=== PATIENT | male | born 1960 | race Caucasian/White ===

== ENCOUNTER → 2023-05-12 06:43 | Outpatient (REF) | payer BC, SELFPAY | LOC: PAVMRI 06:43 | PROVIDERS: ATTENDING PHYSICIAN Physician Assistant | DX: G89.29 Other chronic pain (principal); M51.36 Other intervertebral disc degeneration, lumbar region; M54.41 Lumbago with sciatica, right side; M54.42 Lumbago with sciatica, left side | CPT/HCPCS: 72148 ==

== ENCOUNTER 2023-07-23 06:19 | Inpatient (IN) | payer BC, SELFPAY ==
--- NOTE | 2023-06-19 10:54 | CM ---
Patient is scheduled for lumbar spine surgery on 07/23/23. Spoke with patient prior to surgery via telephone. Patient had a R THR at in 2021. Reintroduced role of the Orthopedic Navigator. Patient reports that he lives with his in a multi
story home. There are 12 steps to enter (bilateral rails) and a flight of steps to the second floor. He currently functions independently. He has a cane, firm cushion, grabber and rolling walker. He had VN services through and [facility]. PCP is
Eric Weinberg.
Discussed orthopedic program, post surgical plans and tentative plan for patient to return home when directed by surgeon. Patient is in agreement with tentative plan and will have support from his when he goes home.
Plan: Orthopedic Navigator will remain available to assist with the care of patient and will reassess discharge needs after surgery.
[2023-07-03 08:16] VITALS: BMI 30.7
[2023-07-03 09:05] LABS: Hematocrit 39.6 % (39.0-52.0); Hemoglobin 13.3 g/dL (13.0-18.0); Mean Corp Hgb Conc. 33.6 g/dL (33.0-37.0); Mean Corpuscular Volume 89.2 fL (80.0-94.0); Mean Platelet Volume 8.6 fL (7.4-10.4); Platelet Count 303 10^3/uL (130-400); Red Blood Cell Count 4.44 10^6/uL (4.70-6.10); Red Cell Dist. Width 13.2 % (11.5-14.5); White Blood Cell Count 7.9 10^3/uL (4.8-10.8)
[2023-07-03 09:51] LABS: ALT (SGPT) 48 U/L (0-50); AST (SGOT) 38 U/L (17-59); Albumin 4.3 g/dl (3.5-5.0); Alkaline Phosphatase 73 U/L (38-126); Blood Urea Nitrogen 33 mg/dl (9-20); Calcium 9.8 mg/dl (8.4-10.2); Carbon Dioxide 29 mmol/L (22-30); Chloride 102 mmol/L (98-107); Estimated Creatinine Clearance 85 ml/min; Glucose 97 mg/dl (70-99); Potassium 5.6 mmol/L (3.5-5.1); Sodium 134 mmol/L (135-145); Total Bilirubin 0.5 mg/dl (0.2-1.3); Total Protein 6.7 g/dl (6.3-8.2); eGFR > 60.00
[2023-07-03 15:06] VITALS: BMI 30.7
--- NOTE | 2023-07-21 15:04 | PTCARENOTE ---
Patients 07/02 potassium 5.6- reviewed by Dr. Starr- no additional interventions required
[2023-07-23] VITALS (13 sets, daily range): BP systolic 97–147; BP diastolic 68–86
[2023-07-23] MEDS: TYLENOL 1000 MG PO ×3 (10:06→23:35)
[2023-07-23] MEDS: NORMOSOL-R 1000 IV ×2 (10:06→17:11)
[2023-07-23] MEDS: CELEBREX 200 MG PO (10:06)
[2023-07-23] MEDS: SKELAXIN 800 MG PO ×2 (10:06→18:49)
[2023-07-23] MEDS: LYRICA 150 MG PO (10:12)
[2023-07-23 10:29] LABS: ALT (SGPT) 40 U/L (0-50); AST (SGOT) 35 U/L (17-59); Albumin 4.6 g/dl (3.5-5.0); Alkaline Phosphatase 77 U/L (38-126); Blood Urea Nitrogen 18 mg/dl (9-20); Calcium 10.2 mg/dl (8.4-10.2); Carbon Dioxide 23 mmol/L (22-30); Chloride 102 mmol/L (98-107); Estimated Creatinine Clearance > 125 ml/min; Glucose 104 mg/dl (70-99); Potassium 4.4 mmol/L (3.5-5.1); Sodium 133 mmol/L (135-145); Total Bilirubin 0.9 mg/dl (0.2-1.3); Total Protein 7.2 g/dl (6.3-8.2); eGFR > 60.00
[2023-07-23] MEDS: DILAUDID 0.5 MG IV ×3 (16:16→16:45)
[2023-07-23] MEDS: DILAUDID 0.25 MG IV (17:32)
[2023-07-23] MEDS: SERAX 10 MG PO ×2 (17:43→22:26)
[2023-07-23] MEDS: ULTRAM 50 MG PO ×2 (18:28→22:26)
[2023-07-23] MEDS: PROTONIX 40 MG PO (18:28)
[2023-07-23] MEDS: THIAMINE INJECTION 200 MG IV (19:21)
[2023-07-23] MEDS: SENOKOT 17.1999999999999993 MG PO (19:33)
[2023-07-23] MEDS: FLOMAX 0.400000000000000022 MG PO (19:34)
[2023-07-23] MEDS: ANCEF 5 IV (19:34)
[2023-07-23] MEDS: COLACE 100 MG PO (19:35)
[2023-07-23] MEDS: LYRICA 75 MG PO (22:30)
[2023-07-24] VITALS (8 sets, daily range): BP systolic 117–151; BP diastolic 68–93; PULSE 75–77; O2SAT 96–97
[2023-07-24] MEDS: SKELAXIN 800 MG PO ×3 (02:18→11:50)
[2023-07-24] MEDS: NORMOSOL-R 1000 IV (02:19)
[2023-07-24] MEDS: ULTRAM 50 MG PO ×4 (02:19→14:53)
[2023-07-24] MEDS: ANCEF 5 IV (04:03)
[2023-07-24] MEDS: TYLENOL 1000 MG PO ×3 (06:01→18:04)
[2023-07-24 06:52] LABS: Hematocrit 33.5 % (39.0-52.0); Hemoglobin 11.5 g/dL (13.0-18.0)
[2023-07-24 07:15] LABS: Blood Urea Nitrogen 20 mg/dl (9-20); Calcium 8.7 mg/dl (8.4-10.2); Carbon Dioxide 25 mmol/L (22-30); Chloride 98 mmol/L (98-107); Estimated Creatinine Clearance 85 ml/min; Glucose 118 mg/dl (70-99); Potassium 4.7 mmol/L (3.5-5.1); Sodium 128 mmol/L (135-145); eGFR > 60.00
--- NOTE | 2023-07-24 08:23 | CM ---
Addendum entered by Annemarie Mora 07/24/23 12:40:
Patient did well in therapy today however will not be discharged due to drain output.
Patient has no discharge planning needs.
Addendum entered by Annemarie Mora 07/24/23 08:24:
Advanced Directives reviewed with patient and written information provided.
Original Note:
Reviewed chart and held rounds with PT, OT and RN. Patient had planned lumbar spine surgery with Dr. Velasquez on 07/22. Met with patient at bedside. Confirmed information previously obtained for assessment and discussed discharge plans. Patient continues
to plan to return home at discharge. He will have support from his when he goes home. Reviewed that he will work with PT/OT this morning and that discharge needs will depend on his functional status. However, no needs currently identified.
Patient has a cane, rolling walker, raised toilet seat and hip kit at home.
Patient will use [facility] pharmacy for discharge prescriptions.
[2023-07-24] MEDS: COLACE 100 MG PO ×2 (08:27→20:20)
[2023-07-24] MEDS: PROTONIX 40 MG PO (08:27)
[2023-07-24] MEDS: TOPROL XL 100 MG PO (08:27)
[2023-07-24] MEDS: FLOMAX 0.400000000000000022 MG PO ×2 (08:27→20:19)
[2023-07-24] MEDS: SERAX 10 MG PO (08:27)
[2023-07-24] MEDS: THIAMINE INJECTION 200 MG IV (08:28)
[2023-07-24] MEDS: SENOKOT 17.1999999999999993 MG PO ×2 (08:29→20:21)
[2023-07-24] MEDS: ROXICODONE 5 MG PO (09:29)
[2023-07-24] MEDS: NORMOSOL-R IV (10:29)
[2023-07-24] MEDS: LYRICA 75 MG PO ×2 (11:44→11:51)
--- NOTE | 2023-07-24 12:02 | W.PN.ORTHO ---
Today's Communication / Plan
-
d/c in am if drain output acceptable range
Assessment
.
Distal Motor Intact: Yes
Dressing:
Clean, dry and intact.
Assessment:
Drain output 360 post surgery and overnight
150 6am to now
Daily ETOH-continue Thiamin and Serax-no sx withdrawl
Plan
.
Surgery / Date: L2-5 [facility] Dr. Velasquez 07/23/23
Activity:
Out of bed.
PT/OT
Subjective
.
.:
Patient resting comfortably.
Vital Signs and Labs
.
Vital Signs and Labs:
Lab Results
07/24/23 06:35
07/24/23 06:35
Temp Pulse Resp BP Pulse Ox
98.4 F 67 18 125/73 97
07/24/23 12:00 07/24/23 12:00 07/24/23 12:00 07/24/23 12:00 07/24/23 12:00
Physical Exam
-
HEENT: No pallor, cyanosis, or jaundice. Throat clear.
NECK: Supple. No JVD.
RESPIRATORY: Lungs clear to auscultation.
CVS: S1, S2 normal. RRR.� No murmur, rub or gallop.
ABDOMEN: Soft, non-tender. No distension. BS+/normal.
EXTREMITIES: strength equal, no calf pain with palpation
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
[2023-07-24] MEDS: ROXICODONE 10 MG PO (20:39)
[2023-07-25] MEDS: TYLENOL 1000 MG PO ×3 (00:06→11:46)
[2023-07-25] MEDS: MIRALAX 17 GRAMS PO (00:13)
[2023-07-25 03:21] VITALS: BP 107/71
[2023-07-25] MEDS: ROXICODONE 5 MG PO (05:29)
[2023-07-25 07:52] VITALS: BP 130/72
--- NOTE | 2023-07-25 08:17 | CM ---
Reviewed chart and held rounds with PT, OT and RN. Met with patient at bedside. Patient reports more pain today; RN and JOSE MIGUEL Jimenez aware. Discussed discharge plans. Patient continues to plan to return home at discharge. He will have support
from his when he goes home. Patient has no discharge planning needs.
Patient has a cane, rolling walker, raised toilet seat and hip kit at home.
Patient will use [facility] pharmacy for discharge prescriptions.
[2023-07-25] MEDS: FLOMAX 0.400000000000000022 MG PO (08:50)
[2023-07-25] MEDS: SENOKOT 17.1999999999999993 MG PO (08:50)
[2023-07-25] MEDS: TOPROL XL 100 MG PO (08:50)
[2023-07-25] MEDS: PROTONIX 40 MG PO (08:50)
[2023-07-25] MEDS: THIAMINE INJECTION 200 MG IV (08:52)
[2023-07-25] MEDS: COLACE 100 MG PO (08:54)
[2023-07-25] MEDS: NEURONTIN 300 MG PO (09:22)
[2023-07-25] MEDS: DECADRON 8 MG IV (09:22)
[2023-07-25] MEDS: DILAUDID 0.5 MG IV (09:23)
[2023-07-25] MEDS: CYKLOKAPRON 1300 MG PO (09:29)
[2023-07-25] MEDS: SERAX 15 MG PO (09:36)
--- NOTE | 2023-07-25 09:39 | PTCARENOTE ---
dose of Serax given to patient 15mg at 0936 . Patient specific controlled drug administration record signed and sent to pharmacy.
[2023-07-25 10:30] VITALS: BP 149/78; BP 151/79; PULSE 83; O2SAT 96
--- NOTE | 2023-07-25 10:48 | W.PN.ORTHO ---
Today's Communication / Plan
-
d/c
Assessment
.
Distal Motor Intact: Yes
Dressing:
Clean, dry and intact.
Assessment:
Drain output -diminishing-dose Tranexamic acid po prior to d/c-drain pulled--no active bleeding, incision clean dry intact
Daily ETOH-continue Thiamin and Serax-no sx withdrawl--Gabapentin Rx at d/c
Coronary artery disease with history of PR 2008, s/p PCI, LAD stents
HTN
HLD
Obesity BMI 30.7
--have included asa 81mg daily to begin July 28 as well as atorvastatin low dose, given patients hx CAD with PCI and coronary risk factors
Hyponatremia-stable
Plan
.
Surgery / Date: [facility] Dr. Velasquez 07/23/23
Activity:
Out of bed.
PT/OT
Discharge Plan: Home
Subjective
.
.:
Patient resting comfortably.
Vital Signs and Labs
.
Vital Signs and Labs:
Lab Results
07/24/23 06:35
07/24/23 06:35
Temp Pulse Resp BP Pulse Ox
98.5 F 79 12 130/70 98
07/25/23 07:52 07/25/23 08:50 07/25/23 07:52 07/25/23 08:50 07/25/23 07:52
Physical Exam
-
HEENT: No pallor, cyanosis, or jaundice. Throat clear.
NECK: Supple. No JVD.
RESPIRATORY: Lungs clear to auscultation.
CVS: S1, S2 normal. RRR.� No murmur, rub or gallop.
ABDOMEN: Soft, non-tender. No distension. BS+/normal.
EXTREMITIES: strength equal, no calf pain with palpation
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
--- NOTE | 2023-07-25 10:58 | W.DS.TRANS ---
DC Summary - Community Engagement Coordinator
-
Discharge Instructions:
Sleep Apnea Risk Intermediate
Discharge Diagnosis/Procedures L2-3-4-[address] [facility] [address] Velasquez 07/23/23
Diet As tolerated
Activity No strenuous activity
Driving Restrictions No driving
Instructions:
Stand-Alone Forms: [facility]as[facility] Lumbar D/C Inst.
Changes to Home Medications: Yes
Discharge Medications:
DC Medications w/original date entered in [employer]
cholecalciferol (vitamin D3) 25 mcg (1,000 unit) tablet 1 tab PO DAILY Supplement 04/02/21
icosapent ethyl 1 gram capsule (Vascepa) 1 gm PO DAILY elevated triglycerides 04/02/21
metoprolol succinate 100 mg tablet,extended release 24 hr 100 mg PO DAILY Blood Pressure 04/02/21
vitamin B complex 1 tab PO DAILY Supplement 04/02/21
ascorbic acid (vitamin C) 1,000 mg tablet (Vitamin C) 1,000 mg PO DAILY Supplement 04/05/21
lisinopril 20 mg-hydrochlorothiazide 12.5 mg tablet 1 tab PO DAILY Blood Pressure 09/23/22
magnesium 200 mg tablet 400 mg PO DAILY Supplement 09/23/22
omeprazole 20 mg capsule,delayed release 20 mg PO DAILY Gastrointestinal Issue 09/23/22
potassium citrate 99 mg capsule 198 mg PO DAILY Electrolyte Repletion 06/27/23
tizanidine 2 mg capsule 2 mg PO HS Muscle Spasms 06/27/23
tramadol 50 mg tablet 25 mg PO BID pain 06/27/23
turmeric root extract 500 mg tablet 500 mg PO DAILY Supplement 06/27/23
vitamin E (dl, acetate) 180 mg (400 unit) capsule 180 mg PO DAILY Supplement 06/27/23
zinc acetate 50 mg (zinc) capsule 50 mg PO DAILY Supplement 06/27/23
tamsulosin 0.4 mg capsule 0.4 mg PO HS #7 caps 07/03/23
Saccharomyces boulardii 250 mg capsule (Florastor) 250 mg PO BID #1 cap 07/25/23
acetaminophen 500 mg tablet 1,000 mg (2 x 500 mg) PO QID #0 tabs 07/25/23
aspirin 81 mg tablet,delayed release 81 mg PO DAILY coronary stents #1 tab 07/25/23
cephalexin 500 mg capsule 500 mg PO QID infection prevention #20 caps 07/25/23
dexamethasone 4 mg tablet 4 mg PO BID inflammation #6 tabs 07/25/23
docusate sodium 100 mg capsule (Colace) 100 mg PO BID stool softner #1 cap 07/25/23
gabapentin 300 mg capsule 300 mg PO BID sleep/pain #20 caps 07/25/23
magnesium hydroxide 400 mg/5 mL oral suspension (Milk of Magnesia) 30 ml PO HS PRN Constipation #1 mL 07/25/23
oxycodone 5 mg tablet 5 mg PO Q6H PRN 1 tab moderate pain, 2 tabs severe pain #30 tabs 07/25/23
sennosides 8.6 mg tablet (Senokot) 17.2 mg (2 x 8.6 mg) PO BID laxative #2 tabs 07/25/23
Home Medication Changes
atorvastatin 20mg qhs disp #30
tamsulosin 0.4 mg capsule 0.4 mg PO HS #7 caps 07/03/23
Saccharomyces boulardii 250 mg capsule (Florastor) 250 mg PO BID #1 cap 07/25/23
aspirin 81 mg tablet,delayed release 81 mg PO DAILY coronary stents #1 tab 07/25/23
cephalexin 500 mg capsule 500 mg PO QID infection prevention #20 caps 07/25/23
dexamethasone 4 mg tablet 4 mg PO BID inflammation #6 tabs 07/25/23
gabapentin 300 mg capsule 300 mg PO BID sleep/pain #20 caps 07/25/23
oxycodone 5 mg tablet 5 mg PO Q6H PRN 1 tab moderate pain, 2 tabs severe pain #30 tabs 07/25/23
Pending Results: No
[2023-07-25 11:45] VITALS: BP 121/68
--- NOTE | 2023-07-25 12:52 | PN.CDI ---
CDI
- -
CDI:
Physician Documentation Request
Admit Date: 07/23/23 06:19
Dear Doctor Velasquez,
Please review the following and provide your response in the progress notes.
Clinical Indicators:
Laboratory Tests
07/03/23 07/23/23 07/24/23
08:13 10:04 06:35
Sodium 134 L 133 L 128 L
Based on the above and your clinical assessment, please clarify, the appropriate diagnosis, if significant, that supports the above abnormalities and additional evaluation, monitoring and/or treatment rendered:
Hyponatremia
Abnormal lab value, clinically insignificant
Other(please specify)
Use of terms such as suspected, likely, concern for, or probable (associated with a specific diagnosis that is being evaluated, monitored, or treated as if it exists) are acceptable and can be coded in the inpatient setting, when documented at the
time of discharge.
Thank you,
Yulisa Dowell RN BSN CCDS
CDI Specialist
please contact via tiger text
Please use your independent medical judgment in providing your response.
--- NOTE | 2023-07-25 13:44 | PTCARENOTE ---
Pt d/c. D/c paperwork reviewed. IV removed tele removed. Transport called.
== END 2023-07-25 14:12 | disposition home or self-care (01) | DRG 460 ==
LOC: 2 NORTH 06:19
PROVIDERS: Anesthesiology; Physician Assistant Medical; ADMITTING PHYSICIAN Orthopaedic Surgery Orthopaedic Surgery of the Spine; FAMILY PHYSICIAN Physician Assistant
PROC: 01NB0ZZ Release Lumbar Nerve, Open Approach (ICD-10-PCS; 2023-07-23)
PROC: 0SG10J1 Fusion of 2 or more Lumbar Vertebral Joints with Synthetic Substitute, Posterior Approach, Posterior Column, Open Approach (ICD-10-PCS; 2023-07-23)
DX: M48.061 Spinal stenosis, lumbar region without neurogenic claudication (principal); M51.36 Other intervertebral disc degeneration, lumbar region; E66.9 Obesity, unspecified; M19.90 Unspecified osteoarthritis, unspecified site; I10 Essential (primary) hypertension; E78.5 Hyperlipidemia, unspecified; I25.10 Atherosclerotic heart disease of native coronary artery without angina pectoris; K21.9 Gastro-esophageal reflux disease without esophagitis; N40.0 Benign prostatic hyperplasia without lower urinary tract symptoms; F10.90 Alcohol use, unspecified, uncomplicated; M41.9 Scoliosis, unspecified; Z96.643 Presence of artificial hip joint, bilateral; Z96.611 Presence of right artificial shoulder joint; I25.2 Old myocardial infarction; Z95.5 Presence of coronary angioplasty implant and graft; Z87.19 Personal history of other diseases of the digestive system; Z68.30 Body mass index [BMI] 30.0-30.9, adult; Z79.1 Long term (current) use of non-steroidal anti-inflammatories (NSAID)
CPT/HCPCS: 36415; 72100; 76000; 80048; 80053; 85014; 85018; 85027; 86850; 86900; 86901; 87070; 97116; 97162; 97166; 97530; 97535; C1713; C1729; C1776

== ENCOUNTER 2023-09-11 06:56 | Outpatient (RCR) | payer BC, SELFPAY | END 2023-09-11 23:59 | disposition home or self-care (01) | LOC: RPT 06:56 | PROVIDERS: ATTENDING PHYSICIAN Physician Assistant Medical; FAMILY PHYSICIAN Orthopaedic Surgery Orthopaedic Surgery of the Spine | DX: Z47.89 Encounter for other orthopedic aftercare (principal); M48.062 Spinal stenosis, lumbar region with neurogenic claudication; Z73.6 Limitation of activities due to disability; M62.81 Muscle weakness (generalized); Z98.1 Arthrodesis status; Z96.643 Presence of artificial hip joint, bilateral | CPT/HCPCS: 97110; 97162; 97530 ==

== ENCOUNTER 2023-10-13 10:38 | Outpatient (RCR) | payer BC, SELFPAY | END 2023-10-13 23:59 | disposition home or self-care (01) | LOC: RPT 10:38 | PROVIDERS: ATTENDING PHYSICIAN Physician Assistant Medical; FAMILY PHYSICIAN Orthopaedic Surgery Orthopaedic Surgery of the Spine | DX: M48.062 Spinal stenosis, lumbar region with neurogenic claudication (principal); Z98.1 Arthrodesis status; Z73.6 Limitation of activities due to disability | CPT/HCPCS: 97110; 97530 ==

== ENCOUNTER 2023-11-14 07:47 | Outpatient (RCR) | payer BC, SELFPAY | END 2023-11-14 23:59 | disposition home or self-care (01) | LOC: RPT 07:47 | PROVIDERS: ATTENDING PHYSICIAN Physician Assistant Medical; FAMILY PHYSICIAN Orthopaedic Surgery Orthopaedic Surgery of the Spine | DX: M48.062 Spinal stenosis, lumbar region with neurogenic claudication (principal); Z98.1 Arthrodesis status; Z73.6 Limitation of activities due to disability | CPT/HCPCS: 97110; 97112; 97530 ==

== ENCOUNTER 2023-12-01 06:43 | Outpatient (RCR) | payer BC, SELFPAY | END 2023-12-01 09:10 | disposition home or self-care (01) | LOC: RPT 06:43 | PROVIDERS: ATTENDING PHYSICIAN Physician Assistant Medical; FAMILY PHYSICIAN Orthopaedic Surgery Orthopaedic Surgery of the Spine | DX: M48.062 Spinal stenosis, lumbar region with neurogenic claudication (principal); Z73.6 Limitation of activities due to disability; M62.81 Muscle weakness (generalized); Z98.1 Arthrodesis status; Z96.643 Presence of artificial hip joint, bilateral | CPT/HCPCS: 97110; 97112; 97530 ==

== ENCOUNTER 2024-05-28 06:17 | Day surgery (SDC) | payer BC, SELFPAY | END 2024-05-28 11:39 | disposition home or self-care (01) | LOC: GI 06:17 | PROVIDERS: ATTENDING PHYSICIAN Internal Medicine | DX: Z12.11 Encounter for screening for malignant neoplasm of colon (principal); K57.30 Diverticulosis of large intestine without perforation or abscess without bleeding; D12.0 Benign neoplasm of cecum; D12.2 Benign neoplasm of ascending colon; Z86.0100 Personal history of colon polyps, unspecified | CPT/HCPCS: 45385; 45380; 88305 ==

== ENCOUNTER → 2024-06-02 08:25 | Outpatient (REF) | payer BC, SELFPAY ==
[2024-06-02 09:27] LABS: % Basophils 0.4 % (0-2); % Immature Granulocytes 0.6 % (0-0.5); % Lymphocytes 21.8 % (20.5-51.1); % Monocytes 7.5 % (1.7-9.3); % Neutrophils 67.7 % (42.2-75.2); Absolute Eosinophils 0.1 10^3/uL (0-0.7); Absolute Lymphocytes 1.5 10^3/uL (1.2-3.4); Absolute Monocytes 0.5 10^3/uL (0.1-0.6); Absolute Neutrophils 4.6 10^3/uL (1.4-6.5); Hematocrit 42.4 % (39.0-52.0); Hemoglobin 14.2 g/dL (13.0-18.0); Mean Corp Hgb Conc. 33.5 g/dL (33.0-37.0); Mean Corpuscular Hgb 29.7 pg (27.0-31.0); Mean Corpuscular Volume 88.7 fL (80.0-94.0); Mean Platelet Volume 8.8 fL (7.4-10.4); Nucleated Red Blood Cells % 0 % (-); Platelet Count 314 10^3/uL (130-400); Red Blood Cell Count 4.78 10^6/uL (4.70-6.10); Red Cell Dist. Width 12.8 % (11.5-14.5); White Blood Cell Count 6.8 10^3/uL (4.8-10.8)
[2024-06-02 11:51] LABS: Glycohemoglobin (HgbA1c) 5.1 % (4.0-5.6)
[2024-06-02 12:44] LABS: PSA, Total - Screen 3.03 ng/ml (0.0-4.0); TSH Reflex To Free T4 0.85 uIU/ml (0.47-4.68)
[2024-06-02 12:54] LABS: ALT (SGPT) 40 U/L (0-50); AST (SGOT) 34 U/L (17-59); Albumin 4.9 g/dl (3.5-5.0); Alkaline Phosphatase 85 U/L (38-126); Blood Urea Nitrogen 21 mg/dl (9-20); Calcium 10.1 mg/dl (8.4-10.2); Carbon Dioxide 25 mmol/L (22-30); Chloride 96 mmol/L (98-107); Glucose 94 mg/dl (70-99); HDL Cholesterol 67 mg/dl; LDL Cholesterol, Calculated 156 mg/dl; Potassium 4.7 mmol/L (3.5-5.1); Sodium 135 mmol/L (135-145); Total Bilirubin 1.1 mg/dl (0.2-1.3); Total Cholesterol 298 mg/dl (50-199); Total Protein 7.5 g/dl (6.3-8.2); Triglyceride 377 mg/dl (10-149); Very Low Density Lipoprotein 75 mg/dl (0-30); eGFR > 60.00
== END ==
LOC: REG 08:25
PROVIDERS: ATTENDING PHYSICIAN Physician Assistant Medical
DX: Z00.00 Encounter for general adult medical examination without abnormal findings (principal); Z13.9 Encounter for screening, unspecified; Z12.5 Encounter for screening for malignant neoplasm of prostate; M87.00 Idiopathic aseptic necrosis of unspecified bone; I25.2 Old myocardial infarction; I10 Essential (primary) hypertension; E78.1 Pure hyperglyceridemia; K21.9 Gastro-esophageal reflux disease without esophagitis; N52.9 Male erectile dysfunction, unspecified; Z95.5 Presence of coronary angioplasty implant and graft; Z68.30 Body mass index [BMI] 30.0-30.9, adult; Z23 Encounter for immunization; R09.81 Nasal congestion
CPT/HCPCS: 36415; 80053; 80061; 82306; 83036; 84443; 85025; G0103

== ENCOUNTER → 2024-10-23 07:45 | Outpatient (REF) | payer BC, SELFPAY ==
[2024-10-23 09:05] LABS: ALT (SGPT) 35 U/L (0-50); AST (SGOT) 32 U/L (17-59); Albumin 4.7 g/dl (3.5-5.0); Alkaline Phosphatase 88 U/L (38-126); Blood Urea Nitrogen 29 mg/dl (9-20); Calcium 10.0 mg/dl (8.4-10.2); Carbon Dioxide 29 mmol/L (22-30); Chloride 100 mmol/L (98-107); Glucose 94 mg/dl (70-99); HDL Cholesterol 64 mg/dl; Magnesium 1.7 mg/dl (1.6-2.3); Potassium 4.9 mmol/L (3.5-5.1); Sodium 137 mmol/L (135-145); Total Protein 8.0 g/dl (6.3-8.2); Very Low Density Lipoprotein 76 mg/dl (0-30); eGFR > 60.00
[2024-10-23 09:15] LABS: LDL Cholesterol, Calculated 185 mg/dl
[2024-10-23 09:36] LABS: PSA, Total - Screen 3.27 ng/ml (0.0-4.0)
== END ==
LOC: REG 07:45
PROVIDERS: ATTENDING PHYSICIAN Physician Assistant Medical
DX: Z51.81 Encounter for therapeutic drug level monitoring (principal); E78.1 Pure hyperglyceridemia; R97.20 Elevated prostate specific antigen [PSA]
CPT/HCPCS: 36415; 80053; 80061; 83735; G0103

== ENCOUNTER → 2024-11-27 08:19 | Outpatient (REF) | payer BC, SELFPAY | LOC: RAD 08:19 | PROVIDERS: ATTENDING PHYSICIAN Physician Assistant Medical | DX: J98.9 Respiratory disorder, unspecified (principal) | CPT/HCPCS: 71046 ==

== ENCOUNTER → 2025-01-22 07:46 | Outpatient (REF) | payer BC, SELFPAY ==
[2025-01-22 09:33] LABS: HDL Cholesterol 81 mg/dl; LDL Cholesterol, Calculated 159 mg/dl; Very Low Density Lipoprotein 25 mg/dl (0-30)
== END ==
LOC: REG 07:46
PROVIDERS: ATTENDING PHYSICIAN Physician Assistant Medical
DX: E78.1 Pure hyperglyceridemia (principal)
CPT/HCPCS: 36415; 80061

== ENCOUNTER → 2025-02-19 09:31 | Outpatient (REF) | payer BC, SELFPAY ==
[2025-02-19 11:03] LABS: Hematocrit 41.7 % (39.0-52.0); Hemoglobin 13.7 g/dL (13.0-18.0); Mean Corp Hgb Conc. 32.9 g/dL (33.0-37.0); Mean Corpuscular Volume 90.1 fL (80.0-94.0); Nucleated Red Blood Cells % 0 % (-); Platelet Count 355 10^3/uL (130-400); Red Cell Dist. Width 13.1 % (11.5-14.5)
[2025-02-19 11:58] LABS: ALT (SGPT) 26 U/L (0-50); AST (SGOT) 31 U/L (17-59); Albumin 4.4 g/dl (3.5-5.0); Alkaline Phosphatase 97 U/L (38-126); HDL Cholesterol 91 mg/dl; LDL Cholesterol, Calculated 66 mg/dl; Total Protein 7.2 g/dl (6.3-8.2); Very Low Density Lipoprotein 20 mg/dl (0-30)
[2025-02-19 12:10] LABS: GGTP 98 U/L (15-73); Uric Acid 6.5 mg/dl (3.5-8.5)
== END ==
LOC: REG 09:31
PROVIDERS: ATTENDING PHYSICIAN Physician Assistant Medical
DX: E78.2 Mixed hyperlipidemia (principal); M25.50 Pain in unspecified joint
CPT/HCPCS: 36415; 80061; 80076; 82550; 82977; 84550; 85025; 86038; 86430; 86618